=== PATIENT | male | born 1940 | race Caucasian/White ===

== ENCOUNTER 2024-03-27 22:10 | Emergency (ER) | payer MEDICARE ==
[~2024-03-27] VITALS: Ht 175.3 cm; Wt 106.5 kg
[2024-03-27 22:12] VITALS: BP 148/120; PULSE 88; RESP 16; TEMP 97.9; O2SAT 96
== END 2024-03-28 00:43 | disposition left against medical advice (07) ==
LOC: ER 22:11
DX: Z00.00 Encounter for general adult medical examination without abnormal findings (principal); Z53.21 Procedure and treatment not carried out due to patient leaving prior to being seen by health care provider